=== PATIENT | male | born 1935 | race Caucasian/White ===

== ENCOUNTER 2019-06-17 08:18 | Emergency (ER) | payer MEDICARE ==
--- NOTE | 2019-06-17 08:40 | Emergency Department Record ---
History of Present Illness - General Chief complaint: Extremity Problem Stated complaint: PAIN IN HIPS/LEGS Time Seen by Provider: 06/17/19 08:39 Source: Patient, RN notes reviewed - History of Present Illness Initial comments: left sided hip fracture in december 2018 and repaired in [place] and was in a snf in [place] and left . He has been on norco since april and he was seen by ortho Dr. Pope in [place] because he is closer to wear he is now living. So he moved to his son's house in [place] and he came here because son lives near here. His is a retired nurse and she is dependent on oxy and the [place] Dr. cao said to just use noco . Son's name is Kalpesh Talking to the patient he is having left hip pain and he saw an orthopedic Dr Pope in [place] an an xray was good(Seen two days ago). He was given a script of norco which has not been filled at this time. His primary is Dr Rai cuba is walking with his walker and no pain in the hip when I flexed it up while checking his knee and than he gets pain spasms periodically. Patient had one norco today and has one norco pill left. - Related Data Home Medications Medication Instructions Recorded Confirmed Last Taken Apixaban [Eliquis] 2.5 mg PO DAILY 06/17/19 06/17/19 06/17/19 Aspirin 81 mg PO DAILY 06/17/19 06/17/19 06/17/19 Atorvastatin Calcium 20 mg PO DAILY 06/17/19 06/17/19 06/17/19 Duloxetine HCl 20 mg PO BID 06/17/19 06/17/19 06/17/19 Ferrous Sulfate [Iron] 325 mg PO DAILY 06/17/19 06/17/19 06/17/19 Hydrochlorothiazide [Hctz] 25 mg PO DAILY 06/17/19 06/17/19 06/17/19 Insulin Lispro [Humalog] 1 each SQ ASDIR 06/17/19 06/17/19 Unknown Losartan Potassium 25 mg PO DAILY 06/17/19 06/17/19 06/17/19 Metformin HCl 1,000 mg PO BID 06/17/19 06/17/19 06/17/19 Metoprolol Succinate [Toprol Xl] 25 mg PO DAILY 06/17/19 06/17/19 06/17/19 NPH, Human Insulin N [Novolin N] 1 each SQ ASDIR 06/17/19 06/17/19 06/16/19 Nitroglycerin 1 tab SL ASDIR 06/17/19 06/17/19 Unknown Tamsulosin HCl [Flomax] 0.4 mg PO DAILY 06/17/19 06/17/19 06/17/19 Verapamil HCl [Verapamil ER] 120 mg PO DAILY 06/17/19 06/17/19 06/17/19 Previous Rx's Medication Instructions Recorded Lidocaine Patch [Lidoderm] 1 ea TOP DAILY #60 patch 06/17/19 Allergies Allergy/AdvReac Type Severity Reaction Status Date / Time Sulfa (Sulfonamide Allergy BLISTERS Verified 06/17/19 08:36 Antibiotics) Review of Systems Reviewed: No additional complaints except as noted below Constitutional: Reports: As per HPI. Denies: Chills, Fever, Malaise, Night sweats, Weakness, Weight change Eyes: Reports: As per HPI. Denies: Eye discharge, Eye pain, Photophobia, Vision change ENT: Reports: As per HPI. Denies: Congestion, Dental pain, Ear pain, Epistaxis, Hearing loss, Throat pain Respiratory: Reports: As per HPI. Denies: Cough, Dyspnea, Hemoptysis, Stridor, Wheezes Cardiovascular: Reports: As per HPI. Denies: Arrhythmia, Chest pain, Dyspnea on exertion, Edema, Murmurs, Orthopnea, Palpitations, Paroxysmal nocturnal dyspnea, Rheumatic Fever, Syncope Endocrine: Reports: As per HPI. Denies: Fatigue, Heat or cold intolerance, Polydipsia, Polyuria Gastrointestinal: Reports: As per HPI. Denies: Abdominal pain, Constipation, Diarrhea, Hematemesis, Hematochezia, Melena, Nausea, Vomiting Genitourinary: Reports: As per HPI. Denies: Dysuria, Frequency, Hematuria, Incontinence, Retention, Testicular pain, Testicular mass, Urgency Musculoskeletal: Reports: As per HPI. Denies: Arthralgia (left hip pain), Back pain, Gout, Joint swelling, Myalgia, Neck pain Skin: Reports: As per HPI. Denies: Bruising, Change in color, Change in hair/nails, Lesions, Pruritus, Rash Neurological: Reports: As per HPI. Denies: Abnormal gait, Confusion, Headache, Numbness, Paresthesias, Seizure, Tingling, Tremors, Vertigo, Weakness Psychiatric: Reports: As per HPI. Denies: Anxiety, Auditory hallucinations, Depression, Homicidal thoughts, Suicidal thoughts, Visual hallucinations Hematological/Lymphatic: Reports: As per HPI. Denies: Anemia, Blood Clots, Easy bleeding, Easy bruising, Swollen glands Physical Exam - General General Appearance: Alert, Oriented x3, Cooperative, No acute distress - Head Head exam: Normal inspection - Eye Eye exam: Normal appearance, PERRL Pupils: Normal accommodation - ENT ENT exam: Normal exam, Mucous membranes moist, Normal external ear exam, Normal orophraynx, TM's normal bilaterally Ear exam: Normal external inspection. negative: External canal tenderness Nasal Exam: Normal inspection. negative: Discharge, Sinus tenderness Mouth exam: Normal external inspection, Tongue normal Teeth exam: Normal inspection. negative: Dental caries Throat exam: Normal inspection. negative: Tonsillar erythema, Tonsillar exudate - Neck Neck exam: Normal inspection, Full ROM. negative: Tenderness - Respiratory Respiratory exam: Normal lung sounds bilaterally. negative: Respiratory distress - Cardiovascular Cardiovascular Exam: Regular rate, Normal rhythm, Normal heart sounds - GI/Abdominal GI/Abdominal exam: Soft, Normal bowel sounds. negative: Tenderness - Rectal Rectal exam: Deferred - exam: Deferred - Extremities Extremities exam: Normal inspection, Full ROM, Normal capillary refill. negative: Tenderness - Back Back exam: Reports: Normal inspection, Full ROM. Denies: Muscle spasm, Rash noted, Tenderness - Neurological Neurological exam: Alert, Normal gait, Oriented X3, Reflexes normal - Psychiatric Psychiatric exam: Normal affect, Normal mood - Skin Skin exam: Dry, Intact, Normal color, Warm Course - Reevaluation(s) Reevaluation #1: said I think he is going through withdrawal. Patient has a pain pump but it has not been filled for 2 months, The pain pump was for his low back pain and he is sitting up on the cart without back pain and family said he is not complaining about back pain 06/17/19 11:45 06/17/19 11:46 06/17/19 13:40 Discussion of pain meds and concerns for dependence of narcotics and will rotate norvo5 mg every 8 hours and tylenol 500 mg thee times in 24 hours every 8 hours in between the noroco and also will use lidocaine patch over the counter once a day on 12 hours and off 12 hours Reevaluation #2: discussed case with ortho general medical practitioner for Dr Pope in [place] 06/17/19 13:52 Reevaluation #3: keep norco the same for one week and follow up with primary to titrate it down use solonpas 4% lidocaine to help with the left hip pain 06/17/19 13:53 Medical Decision Making - Lab Data Result diagrams: 06/17/19 09:56 06/17/19 09:56 Disposition Clinical Impression: Hip pain, left, Opiate withdrawal Chronic pain Qualifiers: Chronic pain type: other chronic pain Qualified Code(s): G89.29 - Other chronic pain Disposition: Home, Self-Care Condition: (2) Stable Instructions: Chronic Pain (ED) Additional Instructions: follow up with primary Dr in 4 days Prescriptions: Lidocaine Patch [Lidoderm] 1 ea TOP DAILY #60 patch Forms: Patient Portal Access Time of Disposition: 13:47 Quality - Quality Measures Quality Measures: N/A - Blood Pressure Screening Does Patient Have Any of the Following: No, Active Dx of HTN Blood Pressure Classification: Hypertensive Reading Systolic Measurement: 201 Diastolic Measurement: 76 Screening for High Blood Pressure: Patient Exclusion, Hx of HTN [[id number]]
[2019-06-17] MEDS ORDERED: KETOROLAC 30 MG/ML VIAL IVP ONE (09:38)
[2019-06-17] MEDS ORDERED: LORAZEPAM 2 MG/ML VIAL IV ONE (09:38)
[2019-06-17 10:05] LABS: ABSOLUTE NEUTROPHIL COUNT 9.44; BASO % 0.2 % (0-6); EOS % 0.6 % (0-6); GRAN % 76.2 % (47-80); HEMATOCRIT 36.8 % (42.0-52.0); HEMOGLOBIN 11.8 gm/dl (14.0-18.0); LYMPH % 16.2 % (16-45); MEAN CELL VOLUME 79.5 fl (81-97); MEAN CORPUSCULAR HEMOGLOBIN 25.4 pg (27-33); MEAN CORPUSCULAR HGB CONC 32.1 g/dl (32-36); MEAN PLATELET VOLUME 8.8 fl (7.4-10.4); MONO % 6.8 % (0-9); PLATELET COUNT 280 K/uL (130-400); RED BLOOD COUNT 4.63 M/uL (4.40-5.70); RED CELL DISTRIBUTION WIDTH 14.8 % (11.5-14.5); URINE APPEARANCE CLEAR; URINE BILIRUBIN NEGATIVE (NEGATIVE); URINE BLOOD SMALL (NEGATIVE); URINE COLOR YELLOW; URINE KETONE TRACE (NEGATIVE); URINE LEUKOCYTE ESTERASE NEGATIVE (NEGATIVE); URINE NITRITE NEGATIVE (NEGATIVE); URINE UROBILINOGEN 0.2 E.U./dL (0.20 - 1.00); WHITE BLOOD COUNT W/O DIFF 12.4 K/uL (4.2-12.2)
[2019-06-17 10:10] LABS: AMPHETAMINE SCREEN URINE NOT DETECTED; BARBITURATE SCREEN URINE NOT DETECTED; BENZODIAZEPINE SCREEN URINE NOT DETECTED; COCAINE SCREEN URINE NOT DETECTED; METHADONE SCREEN URINE NOT DETECTED; METHAMPHETAMINE SCREEN NOT DETECTED; OPIATE SCREEN URINE DETECTED; OXYCODONE SCREEN URINE NOT DETECTED; PHENCYCLIDINE SCREEN URINE NOT DETECTED; PROPOXYPHENE SCREEN URINE NOT DETECTED; THC SCREEN URINE NOT DETECTED; TRICYCLIC ANTIDEPRESSANT SCRN NOT DETECTED
[2019-06-17 10:16] LABS: BLOOD UREA NITROGEN 29 mg/dL (8-23); CREATININE 0.9 mg/dL (0.7-1.2); EST GLOMERULAR FILTRATION RATE > 60 mL/min; URINE BACTERIA NONE SEEN; URINE EPITHELIAL CELLS 0 - 2 (FEW); URINE RBC NONE SEEN (NONE SEEN); URINE WBC NONE SEEN (0-2/hpf)
[2019-06-17 10:19] LABS: GLUCOSE,RANDOM 223 mg/dL (74-109)
[2019-06-17] MEDS ORDERED: MORPHINE SULFATE 5 MG/ML VIAL IVP ONE (11:23)
--- NOTE | 2019-06-17 12:27 | RADIOLOGY REPORT ---
EXAMINATION: Left Hip Minimum Two Views EXAM DATE: 06/17/2019 11:53 AM TECHNIQUE: AP pelvis and left frog leg lateral hip views INDICATION: hip pain repaired dec 2018 COMPARISON: None ENCOUNTER: Initial FINDINGS: The patient is status post total left hip replacement. On the frog leg lateral view, a fracture throu gh the proximal left femur and lesser trochanter is noted. There are mild degenerative changes of the right hip. The soft tissues demonstrate atherosclerotic arterial calcification. IMPRESSION: 1. Status post total left hip replacement. 2. A fracture through the proximal left femur and lesser trochanter, age indeterminate. As there is n o comparison study within our system, it is unclear if this represents a new or known old fracture. Dictated by: Zo Barksdale MD on 06/17/2019 12:22 PM. .
== END 2019-06-17 14:04 | disposition home or self-care (01) ==
LOC: ER 08:18
DX: G89.21 Chronic pain due to trauma (principal); M25.552 Pain in left hip; F11.23 Opioid dependence with withdrawal; T40.2X5A Adverse effect of other opioids, initial encounter; I10 Essential (primary) hypertension; Z96.642 Presence of left artificial hip joint; Z79.01 Long term (current) use of anticoagulants
CPT/HCPCS: 80048; 80305; 81001; 85025; 96374; 96375; 99284; J1885